=== PATIENT | female | born 1960 | race American Indian/Alaskan Native ===

== ENCOUNTER 2016-11-03 11:29 | Day surgery (SDC) | payer MEDICARE ==
[2016-11-03] MEDS ORDERED: IOPIDINE OD ONE (11:59)
[2016-11-03] MEDS ORDERED: MYDRIACYL 1% OD ONE (11:59)
[2016-11-03] MEDS ORDERED: NEOFRIN OD ONE (11:59)
[2016-11-03] MEDS ORDERED: XYLOCAINE 2%/EPI 1:100,000 INFILTRATI ONE (11:59)
[2016-11-03 12:31] VITALS: BP 126/80
[2016-11-03] MEDS ORDERED: PONTOCAINE IJ ONE (13:21)
[2016-11-03] MEDS ORDERED: TOBRADEX OD ONE (13:21)
[2016-11-03] MEDS ORDERED: GONAK ONE (15:15)
== END 2016-11-03 13:25 | disposition home or self-care (01) ==
LOC: OR 11:29
PROVIDERS: ATTEND Specialist
DX: E11.3591 Type 2 diabetes mellitus with proliferative diabetic retinopathy without macular edema, right eye (principal)
CPT/HCPCS: 82962

== ENCOUNTER 2018-05-25 12:31 | Emergency (ER) | payer MEDICARE ==
[2018-05-25] MEDS ORDERED: TYLENOL ONE (12:59)
[2018-05-25] MEDS ORDERED: TYLENOL PO ONE (13:01)
--- NOTE | 2018-05-25 16:57 | Emergency Department Report ---
ED Fall HPI - General Chief Complaint: Fall Stated Complaint: RIGHT HIP/KNEE PAIN Time Seen by Provider: 05/25/18 16:40 Source: patient Mode of arrival: Ambulatory - History of Present Illness Initial Comments: This is a 57-year-old female here reports that she fell at [employer] accidentally when she tripped on a rug and supermarket. She reports that she is having left hip pain and right shoulder pain. Reports right knee pain. Pain ranges from 5-8 out of 10. A kid. She said the pain in her right knee is not as bad but pain in her left hip and right shoulder is really bad. Denies any head injury or loss of consciousness. Denies any dizziness. She says she is limping because it hurts when she walks. Pain is worse with movement and better with rest. No alleviating factors. MD Complaint: fall -: This afternoon Fall From: standing (accidental fall) When Fall Occurred: other (today) Fall Witnessed: yes, by bystander Place Fall Occurred: other ([facility]) Loss of Consciousness: none Prolonged Down Time?: no Symptoms Prior to Fall: none Location: pelvis (left hip pain) Location - Extremities: Right: Shoulder (pain), Knee (pain) Severity: severe Severity scale (0 -10): 8 (pain is 8/10 left hip and right shoulder and 6/stent to right knee.) Context: tripped/slipped Associated Symptoms: denies: headache, neck pain, numbness, weakness, chest paint, shortness of breath, abdominal pain, hematuria, unable to walk, lightheaded, vertigo, confusion - Related Data Previous Rx's Medication Instructions Recorded Last Taken Type Ibuprofen [Motrin] 600 mg PO Q8H PRN #12 tablet 05/25/18 Unknown Rx Allergies Allergy/AdvReac Type Severity Reaction Status Date / Time No Known Allergies Allergy Verified 11/03/16 12:27 ED Review of Systems ROS: Stated complaint: RIGHT HIP/KNEE PAIN Other details as noted in HPI Constitutional: denies: chills, fever Eyes: denies: vision change ENT: denies: epistaxis Respiratory: denies: cough, shortness of breath, SOB with exertion, SOB at rest , stridor, wheezing Cardiovascular: denies: chest pain, palpitations, edema, syncope Gastrointestinal: denies: abdominal pain, nausea, vomiting, diarrhea Genitourinary: denies: urgency, dysuria, discharge Musculoskeletal: arthralgia. denies: back pain, joint swelling Skin: denies: rash, lesions Neurological: denies: headache, weakness, numbness, paresthesias, confusion, abnormal gait, vertigo ED Past Medical Hx - Past Medical History Previous Medical History?: Yes Hx Hypertension: Yes Hx Diabetes: Yes Hx Arthritis: Yes - Surgical History Past Surgical History?: Yes Hx Coronary Stent: Yes - Family History Family history: hypertension - Social History Smoking Status: Never Smoker Substance Use Type: None - Medications Home Medications: Home Medications Medication Instructions Recorded Confirmed Last Taken Type Ibuprofen [Motrin] 600 mg PO Q8H PRN #12 tablet 05/25/18 Unknown Rx ED Physical Exam - General Limitations: No Limitations General appearance: alert, in no apparent distress - Head Head exam: Present: atraumatic, normocephalic, normal inspection, other (normal exam) - Eye Eye exam: Present: normal appearance, PERRL, EOMI Pupils: Present: normal accommodation - ENT ENT exam: Present: normal exam, normal orophraynx, mucous membranes moist, TM's normal bilaterally, normal external ear exam - Neck Neck exam: Present: normal inspection, full ROM, other (no C-spine tenderness). Absent: tenderness, meningismus, lymphadenopathy - Respiratory Respiratory exam: Present: normal lung sounds bilaterally. Absent: respiratory distress, chest wall tenderness - Cardiovascular Cardiovascular Exam: Present: regular rate, normal rhythm, normal heart sounds. Absent: systolic murmur, diastolic murmur - GI/Abdominal GI/Abdominal exam: Present: soft, normal bowel sounds. Absent: distended, tenderness, rigid - Extremities Exam Extremities exam: Present: normal inspection, full ROM, normal capillary refill , other (No cce. + 2 pulses in all extremities, no neurovascular compromise. Bilateral shoulder and knee joint is palpated without any effusion or deformity. She has full range of motion to her shoulders and knees but reports pain with active and passive range of motion. She has tenderness palpated to her left hip with pain with range of motion.). Absent: tenderness, pedal edema , joint swelling, calf tenderness - Expanded Lower Extremity Exam Left Hip exam: Present: normal inspection, full ROM (pain with range of motion to left hip but she has full range of motion.), tenderness (left hip), pelvic stability. Absent: swelling, abrasion, laceration, ecchymosis, deformity, crepidus, erythema, external rotation, internal rotation, shortening Upper Leg exam: Present: normal inspection, full ROM. Absent: tenderness, swelling, abrasion, laceration, ecchymosis, deformity, crepidus, dislocation, erythema Knee exam: Present: normal inspection, full ROM, full knee extension. Absent: tenderness, swelling, abrasion, laceration, ecchymosis, deformity, crepidus, dislocation, erythema, effusion Lower Leg exam: Present: normal inspection, full ROM. Absent: tenderness, swelling, abrasion, laceration, ecchymosis, deformity, crepidus, dislocation, erythema, palpable cord Ankle exam: Present: normal inspection, full ROM. Absent: tenderness, swelling , abrasion, laceration, ecchymosis, deformity, crepidus, dislocation, erythema Foot/Toe exam: Present: normal inspection, full ROM. Absent: tenderness, swelling, abrasion, laceration, ecchymosis, deformity, crepidus, dislocation, erythema, amputation, puncture wound, foreign body, calcaneal tenderness, tenderness at base of 5th metatarsal, nail avulsion, subungual hematoma Neuro vascular tendon exam: Present: no vascular compromise, significant pain with passive ROM of distal joint. Absent: pulse deficit, abnormal cap refill, motor deficit, sensory deficit, tendon deficit, extremity cold to touch, pallor , abnormal 2-point discrimination, decreased fine/light touch, foot drop, peroneal nerve deficit Gait: Positive: observed and limited by pain - Back Exam Back exam: Present: normal inspection, full ROM, rash noted, other (ambulates with a limp to her left side due to pain in her left hip.). Absent: tenderness , muscle spasm, paraspinal tenderness, vertebral tenderness - Neurological Exam Neurological exam: Present: alert, oriented X3 - Psychiatric Psychiatric exam: Present: normal affect, normal mood - Skin Skin exam: Present: warm, dry, intact, normal color. Absent: rash ED Course Vital Signs 05/25/18 05/25/18 05/25/18 12:51 13:03 14:03 Temperature 98 F Pulse Rate 70 Respiratory 20 18 18 Rate Blood Pressure 149/85 O2 Sat by Pulse 98 Oximetry - Reevaluation(s) Reevaluation #1: 05/25/18 17:48 Patient given Tylenol 650 mg in triage area. She reports that she is still having pain. Reevaluation #2: 05/25/18 18:32 Patient was given Toradol 30 mg IV and had Hamlin 5/325 mg one tablet by mouth and Patient was relief of pain down to 3 out of 10. 05/25/18 18:32 ED Medical Decision Making - Radiology Data Radiology results: report reviewed Patient had x-ray of left hip and right tib-fib dictated by radiologist and shows no acute fracture or dislocation. Chronic changes noted. Please see below for details. Patient: YOLI SANCHEZ MR#: [id number] : 1960 Acct:[id number] Age/Sex: 57 / F ADM Date: 05/25/18 Loc: ED Attending Dr: Ordering Physician: ANABELA CARLISLE MD Date of Service: 05/25/18 Procedure(s): XR hip 2-3V LT Accession Number(s): [id number] cc: ANABELA CARLISLE MD Fluoro Time In Minutes: FINAL REPORT PROCEDURE: AP pelvis left hip series TECHNIQUE: AP view of the pelvis and frog-leg view of the left hip were obtained. HISTORY: left hip pain s/p ground level fall. Pain. COMPARISON: No prior studies are available for comparison. FINDINGS: No fracture or dislocation visualized. Joint spaces appear well preserved. There is an oval calcification in the left side of the mid pelvis measuring 2.8 centimeter. This could represent ovarian mass or uterine mass such as partially calcified uterine fibroid. No other abnormalities are seen per IMPRESSION: No acute bony abnormalities are identified. No evidence of fracture or dislocation. Calcification mid pelvis to the left of midline as described. Consider follow-up pelvic ultrasound for further evaluation. Transcribed By: DFFreddy Dictated By: IAN ARAGON MD Electronically Authenticated By: IAN ARAGON MD Signed Date/Time: 05/25/181810 DD/ 10 TD/TT: 05/25/181810 Patient: YOLI SANCHEZ MR#: [id number] : 1960 Acct:[id number] Age/Sex: 57 / F ADM Date: 05/25/18 Loc: ED Attending Dr: Ordering Physician: ANABELA CARLISLE MD Date of Service: 05/25/18 Procedure(s): XR tibia fibula 2V RT Accession Number(s): [id number] cc: ANABELA CARLISLE MD Fluoro Time In Minutes: FINAL REPORT PROCEDURE: XR TIBIA FIBULA 2V RT TECHNIQUE: RIGHT tibia and fibula radiographs, AP and lateral views. CPT 89428 HISTORY: rt lower leg pain, ground level fall. COMPARISON: No prior studies are available for comparison. FINDINGS: No acute fracture is visualized. Cortical and trabecular pattern appear normal. There is a moderate-sized spur at the Achilles tendon insertion site, small spur at the plantar fascia insertion site. No radiopaque foreign bodies are identified. IMPRESSION: No acute abnormalities are identified. Calcaneal spurs are present as described. Transcribed By: CARRIE Dictated By: IAN ARAGON MD Electronically Authenticated By: IAN ARAGON MD Signed Date/Time: 05/25/181812 DD/ 12 TD/TT: 05/25/181812 - Medical Decision Making This is a 57-year-old female here reports that [place] [employer]. She says she tripped on a carpet goes in the supermarket floor and she injured her left hip, right shoulder and right knee. She does complain the pain ranges from 5-8 out of 10. Pain is achy. She was seen and examined by myself. Physical finding for tenderness to left hip. She has full range of motion to all her extremities except that she has pain to her right shoulder, left hip and right knee with range of motion active and passive. No other findings and physical exam are normal. Please refer to exam section for details. She had x-ray of right tib-fib which shows no acute findings except calcaneal bone spurs which is chronic. She had x-ray of left hip which shows no acute findings. X-rays were dictated by radiologist and reviewed by myself. Referred to the diagnostic section for details of reports. I discussed results of x-rays with patient and also diagnosis, medication and treatment plan to include follow-up and she was understanding. She was given Tylenol 650 mg in triage nurse did not help her pain so she was further given Toradol 30 mg IV, Hamlin 5/325 mg one tablet by mouth which relieved her pain. Vital signs are stable, she is afebrile and her pain is better. Patient discharged from ED in stable condition with her family member to follow-up with orthopedic doctor in 3 days. She voiced understanding - Differential Diagnosis FX VS ,dislocation, sprain, strain. Critical care attestation.: If time is entered above; I have spent that time in minutes in the direct care of this critically ill patient, excluding procedure time. ED Disposition Clinical Impression: Arthralgia of multiple sites, bilateral Accidental fall Qualifiers: Encounter type: initial encounter Qualified Code(s): W19.XXXA - Unspecified fall, initial encounter Disposition: TO HOME OR SELFCARE Is pt being admited?: No Does the pt Need Aspirin: No Condition: Stable Instructions: Knee Pain (ED), Arthralgia (ED), Knee Exercises (GEN), Fall Prevention (ED) Additional Instructions: Please follow up with orthopedic doctor in 3 days status post fall. follow-up at [facility] for primary care visit if you do not have a primary care physician Take medication as prescribed Prescriptions: Ibuprofen [Motrin] 600 mg PO Q8H PRN #12 tablet PRN Reason: Pain Referrals: [facility] [Outside] - 05/28/18 PRIMARY CAREMD [Primary Care Provider] - 05/28/18 NILAY GOMES MD [Staff Physician] - 3-5 Days Forms: Accompanied Note, Work/School Release Form(ED)
[2018-05-25] MEDS ORDERED: NORCO 10/325 PO ONE (17:48)
[2018-05-25] MEDS ORDERED: TORADOL IM ONE (17:48)
--- NOTE | 2018-05-25 18:18 | XRay Report ---
FINAL REPORT PROCEDURE: AP pelvis left hip series TECHNIQUE: AP view of the pelvis and frog-leg view of the left hip were obtained. HISTORY: left hip pain s/p ground level fall. Pain. COMPARISON: No prior studies are available for comparison. FINDINGS: No fracture or dislocation visualized. Joint spaces appear well preserved. There is an oval calcification in the left side of the mid pelvis measuring 2.8 centimeter. This could represent ovarian mass or uterine mass such as partially calcified uterine fibroid. No other abnormalities are seen per IMPRESSION: No acute bony abnormalities are identified. No evidence of fracture or dislocation. Calcification mid pelvis to the left of midline as described. Consider follow-up pelvic ultrasound for further evaluation.
--- NOTE | 2018-05-25 18:19 | XRay Report ---
FINAL REPORT PROCEDURE: XR TIBIA FIBULA 2V RT TECHNIQUE: RIGHT tibia and fibula radiographs, AP and lateral views. CPT 16095 HISTORY: rt lower leg pain, ground level fall. COMPARISON: No prior studies are available for comparison. FINDINGS: No acute fracture is visualized. Cortical and trabecular pattern appear normal. There is a moderate-sized spur at the Achilles tendon insertion site, small spur at the plantar fascia insertion site. No radiopaque foreign bodies are identified. IMPRESSION: No acute abnormalities are identified. Calcaneal spurs are present as described.
[2018-05-25 18:58] VITALS: BP 152/88
== END 2018-05-25 18:56 | disposition home or self-care (01) ==
LOC: ED 12:31
DX: M25.552 Pain in left hip (principal); M25.511 Pain in right shoulder; M25.561 Pain in right knee; I10 Essential (primary) hypertension; E11.9 Type 2 diabetes mellitus without complications; M19.90 Unspecified osteoarthritis, unspecified site; W01.0XXA Fall on same level from slipping, tripping and stumbling without subsequent striking against object, initial encounter; Y93.89 Activity, other specified; Y92.89 Other specified places as the place of occurrence of the external cause; Y99.8 Other external cause status
CPT/HCPCS: 73502; 73590; 96372; 99284; J1885